=== PATIENT | male | born 1985 | race Caucasian/White ===

== ENCOUNTER 2019-05-10 05:55 | Day surgery (SDC) | payer OTHER ==
[~2019-05-10] VITALS: Ht 193 cm; Wt 120.2 kg
[2019-05-10] MEDS ORDERED: PROPOFOL 200MG/ 20ML VIAL (DIPRIVAN) IV ONE (07:30)
[2019-05-10] MEDS ORDERED: SEVOFLURANE 15 MIN GAS INH ONE (07:30)
[2019-05-10] MEDS ORDERED: OXYMETAZOLINE HCL 0.05% NASAL SPRAY NS ONE (07:30)
[2019-05-10] MEDS ORDERED: NS 1000 ML IV.SOLN IV ONE (07:30)
[2019-05-10] MEDS ORDERED: MIDAZOLAM HCL 5 MG/5 ML VIAL IVP ONE (07:30)
[2019-05-10] MEDS ORDERED: CIPROFLOXACIN HCL 0.3% EYE DRP 2.5 ML DROPS OP ONE (07:30)
[2019-05-10] MEDS ORDERED: fentaNYL CITRATE/PF 100 MCG/2 ML AMP IVP ONE (07:30)
[2019-05-10] MEDS ORDERED: fentaNYL CITRATE/PF 100 MCG/2 ML AMP ONE (08:47)
[2019-05-10] MEDS ORDERED: ONDANSETRON HCL 4 MG/2 ML VIAL IVP PRN (09:45)
[2019-05-10] MEDS ORDERED: fentaNYL CITRATE/PF 100 MCG/2 ML AMP IVP PRN ×2 (09:45)
[2019-05-10 11:06] VITALS: BP_SYST 139
== END 2019-05-10 10:55 | disposition home or self-care (01) ==
LOC: SMU 05:55 → SDS 05:55 → EDSEX 07:30 → SDS 10:55
PROVIDERS: ATTEND Otolaryngology
DX: H65.03 Acute serous otitis media, bilateral (principal); G47.33 Obstructive sleep apnea (adult) (pediatric); H68.101 Unspecified obstruction of Eustachian tube, right ear; Z99.89 Dependence on other enabling machines and devices
CPT/HCPCS: 69436; J2250; J2704; J3010; J7030; J7120; L8699